=== PATIENT | male | born 1955 | race Two or more races ===

== ENCOUNTER 2025-01-14 06:25 | Day surgery (SDC) | payer OTHER, BC ==
[2025-01-14] MEDS ORDERED: DEXAMETHASONE SOD PHOSPHATE 10 MG/1 ML VIAL ONE (07:31)
[2025-01-14] MEDS ORDERED: LIDOCAINE HCL/PF 1% SDV 5ML VIAL ONE (11:29)
[2025-01-14 13:36] VITALS: BP 136/83; PULSE 79; RESP 18; TEMP 98.3
== END 2025-01-14 14:03 | disposition home or self-care (01) ==
LOC: JASU-SURG 06:25
PROVIDERS: ATTEND Pain Medicine Pain Medicine
PROC: 3E0R3BZ Introduction of Anesthetic Agent into Spinal Canal, Percutaneous Approach (ICD-10-PCS; 2025-01-14)
PROC: 3E0R33Z Introduction of Anti-inflammatory into Spinal Canal, Percutaneous Approach (ICD-10-PCS; principal; 2025-01-14 13:17)
DX: M54.16 Radiculopathy, lumbar region (principal)
CPT/HCPCS: 76000-TC-FY; J1100